=== PATIENT | male | born 1950 | race Caucasian/White ===

== ENCOUNTER 2017-07-10 11:02 | Inpatient (IN) ==
--- NOTE | 2017-07-09 21:13 | Discharge Summary ---
<Emmy Pratt Fifi - Last Filed: 07/10/17 10:45> Date of Encounter: 07/10/17 - Discharge Diagnosis (1) Status post total knee replacement, left Priority: Primary Status: Acute (2) Arthritis of knee, left Priority: Primary Status: Acute (3) HTN (hypertension) Priority: Secondary Status: Acute Qualifiers: Hypertension type: essential hypertension Qualified Code(s): I10 - Essential (primary) hypertension (4) Paroxysmal atrial fibrillation Priority: Secondary Status: Chronic (5) Nocturnal hypoxemia Priority: Secondary Status: Chronic (6) GUI (obstructive sleep apnea) Priority: Secondary Status: Chronic Comments: ON O2 Q HS (7) Chronic pain Priority: Secondary Status: Chronic Comments: Holding [place] 5/325 BID - last dose 06/16/17 Qualifiers: Chronic pain type: other chronic pain Qualified Code(s): G89.29 - Other chronic pain (8) Cerebral palsy Priority: Secondary Status: Chronic Qualifiers: Cerebral palsy type: unspecified type Qualified Code(s): G80.9 - Cerebral palsy, unspecified - Discharge Medications Home Medications: Aspirin Enteric Coated [Aspirin EC] 325 mg PO DAILY #21 tablet. 07/09/17 [Rx] OxyCODONE Immed Rel [Roxicodone 5 MG] 5 - 10 mg PO Q6HR PRN #40 tablet 07/09/17 [Rx] Acetaminophen [Tylenol] 500 mg PO TID PRN 07/10/17 [History] Ascorbate Calcium [Vitamin C] 500 mg PO DAILY 07/10/17 [History] Atorvastatin [Lipitor] 40 mg PO DAILY 07/10/17 [History] Carvedilol [Coreg] 25 mg PO BID 07/10/17 [History] DiphenhydraMINE [Benadryl] 50 mg PO HS PRN 07/10/17 [History] Lisinopril [Zestril] 5 mg PO DAILY 07/10/17 [History] Mv-Mn/FA/Vit K/Lycop/Lut/Coq10 [Daily Multivitamin Capsule] 1 tab PO DAILY 07/10 [History] Rivaroxaban [Xarelto] 20 mg PO DAILY 07/10/17 [History] Allergies/Adverse Reactions: 3 Allergy/AdvReac Type Severity Reaction Status Date / Time Amoxicillin Allergy Rash Verified 07/10/17 11:57 ibuprofen [From Motrin] Allergy See Verified 07/10/17 11:57 Comments NSAIDS (Non-Steroidal Allergy See Verified 07/10/17 11:57 Anti-Inflamma Comments Primary care physician: Mony Armstrong, - Patient Status Disposition: Home, Self-Care Condition: Good - Discharge Instructions Follow Up With: Mony Armstrong MD [Primary Care Provider] - - Hospital Course Hospital course: Mr. Castelan is a 67 year old male - Time Spent with Patient Total time spent providing and/or coordinating discharge services: <Alejandro Patten - Last Filed: 07/13/17 06:51> Date of Encounter: 07/13/17 Time of Encounter: 06:50 - Discharge Diagnosis (1) Obesity (BMI 35.0-39.9 without comorbidity) Priority: Secondary Status: Chronic (2) Status post total knee replacement, left Priority: Primary Status: Acute (3) Arthritis of knee, left Priority: Primary Status: Chronic (4) HTN (hypertension) Priority: Secondary Status: Chronic Qualifiers: Hypertension type: essential hypertension Qualified Code(s): I10 - Essential (primary) hypertension (5) Paroxysmal atrial fibrillation Priority: Secondary Status: Chronic (6) Nocturnal hypoxemia Priority: Secondary Status: Chronic (7) GUI (obstructive sleep apnea) Priority: Secondary Status: Chronic (8) Chronic pain Priority: Secondary Status: Chronic Qualifiers: Chronic pain type: other chronic pain Qualified Code(s): G89.29 - Other chronic pain (9) Cerebral palsy Priority: Secondary Status: Chronic Qualifiers: Cerebral palsy type: unspecified type Qualified Code(s): G80.9 - Cerebral palsy, unspecified (10) Renal insufficiency Priority: Secondary Status: Chronic (11) Acute blood loss anemia Priority: Primary Status: Acute Primary care physician: Mony Armstrong, - Patient Status Functional capacity at discharge: uses cane/walker Overall status at discharge: patient is progressing back to baseline - Hospital Course Hospital course: Mr. Castelan is a 67 year old male Status post left total knee replacement. Patient with a running aVR with his atrial fibrillation treated with IV Cardizem changed to by mouth Cardizem otherwise discharge stable condition. The patient had an uneventful postoperative course. They received antibiotics and physical therapy and were discharged in stable condition. There will follow -up in the office in 2 weeks. - Time Spent with Patient Total time spent providing and/or coordinating discharge services:
--- NOTE | 2017-07-10 11:20 | History & Physical Report ---
Date of Encounter: 07/10/17 Time of Encounter: 11:20 24 Hour HP Update - Instructions Instructions: If the History and Physical is less than 30 days old and was completed prior to A.M. admission and or procedure and has NOT been updated on calendar day of procedure please complete this update prior to performing procedure. - Update Patient reports changes in Medical Condition: No Changes in examination, assessment, or condition: No Changes in Medication: No Preop tests/diagnostics Reviewed: Yes Surgery Remains Indicated: Yes Consent for Planned Operative Procedure(s) Verified: Yes - Pre-Operative Checklist Preoperative Checklist Indicated: No Prophylactic Antibiotic Ordered: Yes Is VTE Prophylaxis Indicated?: Yes
[2017-07-10] MEDS ORDERED: Lidocaine -MPF 1% 2 ML VIAL ID ONE (11:24)
[2017-07-10] MEDS ORDERED: Clindamycin 900 MG/50 ML 900 MG/50 ML IV.SOLN IVPB ONE (11:24)
[2017-07-10] MEDS ORDERED: Ringers Solution, Lactated 1,000 ML IVC SCH ×2 (11:30→17:36)
[2017-07-10] MEDS ORDERED: CeFAZolin Pre 2,000 MG/100 ML 2,000 MG/100 ML BAG IVPB ONE (11:30)
--- NOTE | 2017-07-10 11:41 | Anesthesia Evaluation PreOp ---
Date of Encounter: 07/10/17 Time of Encounter: 11:38 - Past History Planned Operation: l tka Cardiac History: HTN, Hyperlipidemia, Arrhythmia (af) Pulmonary History: Snore, Tired most of day, Gasp/choke asleep [employer] History: Other (cerebral palsy, l sided weakness) Other Medical History: Denies Any Significant HX Anesthesia History: No Prior Anesthetic Complications, Past Anesthesia (ex lap gastrectomy, r bunion, tonsils, ventral hernia, achilles) Alcohol Use: none Drug use: none Medications and Allergies Aspirin Enteric Coated [Aspirin EC] 325 mg PO DAILY #21 tablet.dr 07/09/17 [Rx] OxyCODONE Immed Rel [Roxicodone 5 MG] 5 - 10 mg PO Q6HR PRN #40 tablet 07/09/17 [Rx] 3 Allergy/AdvReac Type Severity Reaction Status Date / Time Amoxicillin Allergy Rash Verified 06/27/17 14:02 ibuprofen [From Motrin] Allergy See Verified 06/27/17 14:01 Comments NSAIDS (Non-Steroidal Allergy See Verified 06/27/17 14:02 Anti-Inflamma Comments - Meds/Allergy Pre-op Review Medications Reviewed: Yes (xarelto off x 48hrs) Allergies Reviewed: Yes Beta Blockers on Current Med List: Yes If Beta Blockers taken, Date/Time (Last Dose taken): coreg at 09:45 Anesthesia Results - Imaging EKG: report reviewed (07/05 sr) Anesthesia Exam O2 Sat Height 1.63 m Height 1.63 m Height 1.63 m Weight 101.151 kg Weight 101.151 kg Weight 101.151 kg O2 Sat by Pulse Oximetry 96 O2 Sat by Pulse Oximetry 96 Vital Signs Temp Pulse Resp BP Pulse Ox 97.7 F 78 18 184/87 96 07/10/17 11:18 07/10/17 11:18 07/10/17 11:18 07/10/17 11:18 07/10/17 11:18 Height: 1.63 Weight: 101 NPO (# of Hours): >8 - HEENT Pupil (Motor): Pupils equal, EOMI Mallampati: II Teeth: Poor dentition Oral Opening: Greater than 3 - [employer] Motor: Normal RUE, Normal RLE, Normal Face, Deficit LUE, Deficit LLE [employer] Sensory: Normal: RUE, RLE, Face, Deficit: LUE, LLE - Cardiac Rhythm: Regular Murmur: None - Pulmonary Breath Sounds: bilateral Clear Respiratory Effort: Symmetrical Anesthesia Assess/Plan ASA Score: 3 (no sux) Modified Rubio Scale for Level of Consciousness: Cooperative, oriented, and tranquil Anesthetic Plan: General Monitoring Plan: Standard Monitors Recovery Plan: PACU
[2017-07-10] MEDS ORDERED: CloNIDine Patch 0.1 MG PATCH (WEEKLY) TD ONE (12:00)
[2017-07-10] MEDS ORDERED: Bupivacaine/Clonidine Syringe 1 EACH SYRINGE ONE (13:15)
[2017-07-10] MEDS ORDERED: ROPIVACAINE HCL/PF 0.5% 30 ML VIAL ONE (13:27)
[2017-07-10] MEDS ORDERED: Acetaminophen IV 0 MG/0 ML INFUS..BTL ONE (14:34)
[2017-07-10] MEDS ORDERED: *HR* Labetalol 20 MG/4 ML SYRINGE IVP PRN (14:39)
[2017-07-10] MEDS ORDERED: Dexamethasone 4 MG/ML VIAL IVP PRN (14:39)
[2017-07-10] MEDS ORDERED: Ondansetron 4 MG/2 ML VIAL IVP PRN ×2 (14:39→17:36)
[2017-07-10] MEDS ORDERED: *HR* FentaNYL (PF) 100 MCG/2 ML VIAL ONE ×2 (14:46)
[2017-07-10] MEDS ORDERED: Lidocaine -MPF 2% 2 ML VIAL ONE (14:46)
[2017-07-10] MEDS ORDERED: *HR* Propofol 200 MG/20 ML VIAL IVP ONE (14:46)
[2017-07-10] MEDS ORDERED: Ondansetron 4 MG/2 ML VIAL ONE (14:46)
[2017-07-10] MEDS ORDERED: *HR* Midazolam HCl 2 MG/2 ML VIAL ONE (14:46)
[2017-07-10] MEDS ORDERED: *HR* HYDROmorphone 2 MG/ML SYRINGE ONE (14:49)
--- NOTE | 2017-07-10 14:59 | Orthopedic Operative Note ---
Date of procedure: 07/10/17 Pre-op diagnosis: Left knee arthritis Post-op diagnosis: same (Left leg cerebral palsy) Procedure: Procedure: Left Total knee replacement Estimated blood loss: 400 cc Hardware: Metal and polyethylene replacement. Arthrex Femur: 4 Tibia: 3 PS insert:12 Patella:34 Exam Under anesthesia: Valgus alignment loss. Extension 5 degrees full flexion significant smaller left lower extremity Procedural Notes: Grade 4 arthritic changes medial compartment patellofemoral joint and lateral compartment Operative procedure: The patient was brought to the operating room and placed on the operating room table. After general anesthesia was administered the operative knee was examined. Findings were noted in the exam under anesthesia. The operative extremity was prepped and draped in sterile surgical fashion. The patient received IV antibiotics prior to skin incision. A standard midline incision was made centered over the patella. The incision was made through the skin and subcutaneous tissue. A medial parapatellar tendon approach was performed. Care was taken to preserve tissue along the medial aspect of the patella. And to protect the patella tendon. The deep MCL was released off the medial tibia. The infra patella fat pad was excised. Knee was brought into flexion. Patient noted to have grade 4 arthritic changes all 3 compartments. The entry hole was made for the intramedullary femoral guide. The guide was seated in 6 degrees of valgus. Anterior cut was made followed by the distal cut. The ACL the PCL the medial and the lateral menisci were excised. The tibia was subluxed forward. The entry hole was made for the intramedullary tibial guide. Guide was seated to resect 2 mm off the more abnormal side. The knee was brought into flexion the distal femur was sized to a 4. The femoral guide was seated, the anterior cut was made followed by the posterior condylar cut, followed by the chamfer cuts. The finishing guide was seated the box cut was made and the lug holes were drilled. The tibia was sized to 3, the tibial tray was seated and prepared with the large drill followed by the fin cutter. Trial reduction revealed full extension no varus valgus instability with the appropriate 12 PS Bharti. The patella was everted and cut was made at the level of the insertion of the quadriceps and patella tendon. The patella was sized to 30 the guide was seated and the lug holes are drilled. Trial reduction revealed excellent patella tracking. All trial components were removed all bony surfaces were irrigated. The tibia was cemented first followed by the femur. The 12 PS Bharti was seated and the knee was brought into full extension. The patella was cemented and held in place with the patellar holding clamp. After the cement had hardened, the knee sat for 2 minutes with a Betadine saline solution. The knee was then irrigated out with 2 L of pulse irrigation. The PA closed the knee. The extensor mechanism was closed with #2 FiberWire suture and #2 PDS suture. The subcutaneous tissue was then irrigated and closed deep with #1 PDS suture superficially with 0 PDS suture and skin was closed with skin miguel. The patient was then placed in a sterile dressing and a postoperative brace extubated and transferred to recovery room in stable condition. Anesthesia: JAGJIT Surgeon: Alejandro Patten [employer] Worker: Lexus Neff Condition: stable Disposition: PACU
[2017-07-10] MEDS ORDERED: *HR* Morphine 10 MG/ML VIAL ONE (15:30)
[2017-07-10] MEDS: *HR* HYDROmorphone (PF) 1 MG/ML SYRINGE IVP PRN ×5 (15:48→23:17)
--- NOTE | 2017-07-10 16:24 | Anesthesia Evaluation Post Op ---
Date of Encounter: 07/10/17 Time of Encounter: 16:24 - Vital Signs Vital Signs: Vital Signs/O2 Sat, Most Current Temp Pulse Resp BP Pulse Ox 98.1 F 70 14 149/94 94 07/10/17 16:05 07/10/17 16:15 07/10/17 16:15 07/10/17 16:15 07/10/17 16:15 - Lungs Lungs: Clear Ascult./Percussion - Airway Airway: Non-obstructed - Cardiovascular Regular Rate - Mental Status Mental Status: Alert & Oriented, Answers Appropriately - Pain Pain Scale: 5 Pain Scale used: Numeric (1 - 10) - Nausea Vomiting Nausea Vomiting: Not Present - Hydration Hydration: Ice chips, Has not voided - Discharge PostOp Status: Transfer Patient to floor
[2017-07-10 17:24] LABS: Hematocrit 37.9 % (37.5-50.1); Hemoglobin 12.1 g/dL (12.9-16.9)
[2017-07-10] MEDS ORDERED: ceFAZolin 2,000 MG in D5% in Water 100 ML IVPB SCH (17:36)
[2017-07-10] MEDS ORDERED: *HR* OxyCODONE Immed Rel 5 MG TABLET PO PRN (17:36)
[2017-07-10] MEDS ORDERED: Naloxone 0.4 MG/ML INJ IVP PRN (17:36)
[2017-07-10] MEDS ORDERED: *HR* Enoxaparin 30 MG/0.3 ML SYRINGE SQ SCH (18:00)
[2017-07-10] MEDS: *HR* OxyCODONE Immed Rel 5 MG TABLET PO PRN (18:58)
[2017-07-10] MEDS ORDERED: Sennosides 8.6 MG TABLET PO PRN (21:00)
[2017-07-10] MEDS ORDERED: Temazepam 15 MG CAPSULE PO PRN (21:00)
[2017-07-10] MEDS ORDERED: MOM Conc 10 ML UD.LIQ PO PRN (21:00)
[2017-07-10] MEDS: ceFAZolin 2,000 MG in D5% in Water 100 ML IVPB SCH (21:43)
[2017-07-11] MEDS: *HR* OxyCODONE Immed Rel 5 MG TABLET PO PRN ×4 (04:02→21:29)
[2017-07-11 05:40] LABS: Hematocrit 34.3 % (37.5-50.1); Hemoglobin 10.7 g/dL (12.9-16.9)
[2017-07-11] MEDS: ceFAZolin 2,000 MG in D5% in Water 100 ML IVPB SCH (05:43)
[2017-07-11] MEDS: *HR* HYDROmorphone (PF) 1 MG/ML SYRINGE IVP PRN ×5 (05:52→15:12)
[2017-07-11 05:53] LABS: Calcium 8.4 mg/dL (8.6-10.8); Potassium 4.6 mEq/L (3.5-4.5)
--- NOTE | 2017-07-11 06:48 | Orthopedics Progress Note ---
Date of Encounter: 07/11/17 Time of Encounter: 06:47 - Assessment and Plan (1) Obesity (BMI 35.0-39.9 without comorbidity) Current Visit: Yes Status: Chronic (2) Status post total knee replacement, left Current Visit: Yes Status: Acute (3) Arthritis of knee, left Current Visit: Yes Status: Chronic (4) HTN (hypertension) Current Visit: Yes Status: Chronic Qualifiers: Hypertension type: essential hypertension Qualified Code(s): I10 - Essential (primary) hypertension (5) Paroxysmal atrial fibrillation Current Visit: Yes Status: Chronic (6) Nocturnal hypoxemia Current Visit: Yes Status: Chronic (7) GUI (obstructive sleep apnea) Current Visit: Yes Status: Chronic (8) Chronic pain Current Visit: Yes Status: Chronic Qualifiers: Chronic pain type: other chronic pain Qualified Code(s): G89.29 - Other chronic pain (9) Cerebral palsy Current Visit: Yes Status: Chronic Qualifiers: Cerebral palsy type: unspecified type Qualified Code(s): G80.9 - Cerebral palsy, unspecified Subjective Interval history: Patient was seen this morning doing well without complaints. Afebrile vital signs stable. Operative extremity: Neurovascularly intact Dressing clean dry and intact Calves nontender Assessment and plan: Continue with postoperative care Hematocrit 34 Objective Vital signs: Vital Signs Temp Pulse Resp BP Pulse Ox 07/11/17 04:41 99.1 F 92 19 151/82 95 07/11/17 00:14 97.8 F 106 19 154/91 96 07/10/17 19:27 98.4 F 76 16 148/84 96 07/10/17 17:35 97.7 F 69 12 160/90 91 07/10/17 16:57 97.7 F 77 14 146/88 97 07/10/17 16:25 98.1 F 73 14 136/97 97 07/10/17 16:15 70 14 149/94 94 07/10/17 16:05 98.1 F 73 14 142/97 93 07/10/17 15:55 82 12 167/99 95 07/10/17 15:45 84 14 139/96 94 07/10/17 15:35 97.5 F L 85 16 127/77 95 07/10/17 11:31 97.7 F 78 18 184/87 96 07/10/17 11:18 97.7 F 78 18 184/87 96 Intake and Output 07/10/17 07/10/17 07/11/17 15:59 23:59 07:59 Intake Total 100 / 100 200 / 200 800 / 800 Output Total 500 / 500 Balance -400 / -400 200 / 200 800 / 800 Intake: IV Fluids 100 / 100 100 / 100 Ancef Premix 2,000 MG/100 100 / 100 ML 2,000 mg In 100 ml @ 200 mls/hr IVPB PREOP ONE Rx#:[id number] Ancef 2,000 MG In 100 / 100 Dextrose 5% 100 ML @ 200 mls/hr IVPB Q8H [facility] Rx#: [id number] Oral 100 / 100 800 / 800 Output: Estimated Blood Loss 500 / 500 Other: Weight 101.151 kg - Labs CBC & BMP: 07/11/17 05:14 07/11/17 05:14 Labs: Abnormal lab results Hgb 10.7 g/dL (12.9-16.9) L 07/11/17 05:14 Hct 34.3 % (37.5-50.1) L 07/11/17 05:14 Sodium 131 mEq/L (136-145) L 07/11/17 05:14 Potassium 4.6 mEq/L (3.5-4.5) H 07/11/17 05:14 Creatinine 1.76 mg/dL (0.72-1.25) H 07/11/17 05:14 Est GFR ( Amer) 47 (> 60) L 07/11/17 05:14 Est GFR (Non-Af Amer) 39 (> 60) L 07/11/17 05:14 Glucose 135 mg/dL (70-99) H 07/11/17 05:14 Calculated Osmolality 278 (280-300) L 07/11/17 05:14 Calcium 8.4 mg/dL (8.6-10.8) L 07/11/17 05:14 - VTE Documentation of Mechanical Device: Venous foot pump, device Consult Discharge Plan - Plan Referrals: Mony Armstrong MD [Primary Care Provider] -
[2017-07-11] MEDS: Ascorbic Acid 500 MG TABLET PO SCH (08:04)
[2017-07-11] MEDS: Multivit/Ca/Min/Fe/FA 1 TAB TABLET PO SCH (08:04)
[2017-07-11] MEDS ORDERED: *HR* Rivaroxaban 10 MG TABLET PO SCH (09:00)
--- NOTE | 2017-07-11 12:12 | Event Note ---
Date of Encounter: 07/11/17 Time of Encounter: 12:11 PCR - Left TKR - POD#1. Patient seen at bedside. Limited urine output today - bladder scan needs repeated* patient declined straight catherization. No change with renal function per labs at this time. Will monitor. Pain control: Chronic pain medication - [place] 5/325 BID - on hold Participating in PT. Recommending ECF for now. All questions and concerns addressed. Educated on use of incentive spirometer, ambulation, and hydration. Patient educated on post-operative restrictions and care. Addressed: P. A.Fib - resumed Xarelto 07/11/17 Cerebral Palsy GUI with O2 at night needed - chronic D/C plan: Outpatient PT, or likely HH - patient declining ECF placement.
[2017-07-11] MEDS ORDERED: 0.9 % Sodium Chloride 500 ML IVC ONE (16:36)
[2017-07-12] MEDS ORDERED: 0.9 % Sodium Chloride 250 ML ONE (01:00)
--- NOTE | 2017-07-12 01:17 | Internal Medicine Consult Note ---
Date of Encounter: 07/12/17 Time of Encounter: 01:15 - Assessment and Plan (1) Paroxysmal atrial fibrillation Current Visit: Yes Status: Chronic Assessment and plan: Has P.AFib but likely went to RVR during stress dorothy-operatively. Given BP stable, start dilt gtt in attempt to rate control, check Mg and K to ensure >2 and >4-5 respectively. Aim to stabilize HR. May need to increase coreg dose in the morning depending on how he fair overnight (2) Renal insufficiency Current Visit: Yes Status: Acute Assessment and plan: unknown baseline. Will trend Cr (3) Cerebral palsy Current Visit: Yes Status: Chronic Assessment and plan: stable Qualifiers: Cerebral palsy type: unspecified type Qualified Code(s): G80.9 - Cerebral palsy, unspecified (4) Obesity (BMI 35.0-39.9 without comorbidity) Current Visit: Yes Status: Chronic Assessment and plan: education (5) HTN (hypertension) Current Visit: Yes Status: Chronic Assessment and plan: monitor on cardiac meds above Qualifiers: Hypertension type: essential hypertension Qualified Code(s): I10 - Essential (primary) hypertension (6) Status post total knee replacement, left Current Visit: Yes Status: Acute Assessment and plan: management per ortho Internal Medicine - CN: HPI - Data of Consult Patient: new to practice Consult date: 07/12/17 Requesting Physician: Alejandro Patten MD - Consult Narrative Reason for consult: AFib rvr History of present illness: Mr. Castelan is a 67 year old male with hx of HTN, P.AFib on coreg, xarelto under the care of Dr Anival Martínez of cardiology. He is s/p left knee replacement this past monday and is pending disposition today. However, overnight , he went into AFib rvr with mild symptoms but stable appearing. EKG reviewed by self with rate 157, RVR. Past Med Surg Social Fam HX - Past Medical History Medical history: hyperlipidemia, hypertension Psychiatric history: no psych history - Social History Smoking Status: Former smoker Smokeless Tobacco Status: No Alcohol use: none Drug use: none Review of systems: ROS 14 point review of systems reviewed as best as possible given presentation. Pertinent positive or negative as per HPI or otherwise reviewed as negative Internal Medicine - CN: Meds Aspirin Enteric Coated [Aspirin EC] 325 mg PO DAILY #21 tablet. 07/09/17 [Rx] OxyCODONE Immed Rel [Roxicodone 5 MG] 5 - 10 mg PO Q6HR PRN #40 tablet 07/09/17 [Rx] Acetaminophen [Tylenol] 500 mg PO TID PRN 07/10/17 [History] Ascorbate Calcium [Vitamin C] 500 mg PO DAILY 07/10/17 [History] Atorvastatin [Lipitor] 40 mg PO DAILY 07/10/17 [History] Carvedilol [Coreg] 25 mg PO BID 07/10/17 [History] DiphenhydraMINE [Benadryl] 50 mg PO HS PRN 07/10/17 [History] Lisinopril [Zestril] 5 mg PO DAILY 07/10/17 [History] Mv-Mn/FA/Vit K/Lycop/Lut/Coq10 [Daily Multivitamin Capsule] 1 tab PO DAILY 07/10 [History] Rivaroxaban [Xarelto] 20 mg PO DAILY 07/10/17 [History] 3 Allergy/AdvReac Type Severity Reaction Status Date / Time Amoxicillin Allergy Rash Verified 07/10/17 11:57 ibuprofen [From Motrin] Allergy See Verified 07/10/17 11:57 Comments NSAIDS (Non-Steroidal Allergy See Verified 07/10/17 11:57 Anti-Inflamma Comments Internal Medicine - CN: Exam - Constitutional Vitals: Temp Pulse Resp BP Pulse Ox 98.9 F 148 18 153/76 93 07/12/17 00:25 07/12/17 00:25 07/12/17 00:25 07/12/17 00:25 07/12/17 00:25 Exam: General - AAO x 3 Psych - Appropriate affect/speech. No agitation Eyes - OREN. Eye lids intact. No scleral icterus Heart - irregularly irregular tachycardia. S1 and S2 present. No added HS/ murmurs appreciated. No elevated JVD appreciated. Lung - Adequate air entry b/l, No crackes/wheezes appreciated GI - Soft, non-tender. No hepatosplenomegaly/ascites. BS+ - No CVA/suprapubic tenderness or palpable bladder distension Internal Medicine - CN: Reslt - Labs CBC & Chem 7: 07/11/17 05:14 07/11/17 05:14 Labs: Short CBC 07/11/17 Range/Units 05:14 Hgb 10.7 L (12.9-16.9) g/dL Hct 34.3 L (37.5-50.1) % BMP 07/11/17 05:14 Sodium 131 L Potassium 4.6 H Chloride 99 Carbon Dioxide 24 BUN 25 Creatinine 1.76 H Glucose 135 H Calcium 8.4 L - Impressions Impressions Knee X-Ray 07/10/17 00:01 IMPRESSION: No evident complication status post left total knee arthroplasty. D/ / 07/10/2017 16:52:59 Robinson Vail MD / hayden Interpreting Provider: Robinson Vail MD Consult Discharge Plan - Plan Referrals: Mony Armstrong MD [Primary Care Provider] -
--- NOTE | 2017-07-12 06:38 | Orthopedics Progress Note ---
Date of Encounter: 07/12/17 Time of Encounter: 06:37 - Assessment and Plan (1) Obesity (BMI 35.0-39.9 without comorbidity) Current Visit: Yes Status: Chronic (2) Status post total knee replacement, left Current Visit: Yes Status: Acute (3) Arthritis of knee, left Current Visit: Yes Status: Chronic (4) HTN (hypertension) Current Visit: Yes Status: Chronic Qualifiers: Hypertension type: essential hypertension Qualified Code(s): I10 - Essential (primary) hypertension (5) Paroxysmal atrial fibrillation Current Visit: Yes Status: Chronic (6) Nocturnal hypoxemia Current Visit: Yes Status: Chronic (7) GUI (obstructive sleep apnea) Current Visit: Yes Status: Chronic (8) Chronic pain Current Visit: Yes Status: Chronic Qualifiers: Chronic pain type: other chronic pain Qualified Code(s): G89.29 - Other chronic pain (9) Cerebral palsy Current Visit: Yes Status: Chronic Qualifiers: Cerebral palsy type: unspecified type Qualified Code(s): G80.9 - Cerebral palsy, unspecified Subjective Interval history: Patient was seen this morning doing well without complaints. Patient with atrial fibrillation RVR overnight seen and evaluated by hospitalist consult appreciated Afebrile vital signs stable. Operative extremity: Neurovascularly intact Dressing clean dry and intact Calves nontender Assessment and plan: Continue with postoperative care Hematocrit 34 orthopedically stable, plan as per hospitalist. Objective Vital signs: Vital Signs Temp Pulse Resp BP Pulse Ox 07/12/17 05:41 90 121/78 07/12/17 05:23 77 124/65 07/12/17 05:00 89 116/71 07/12/17 04:34 86 123/64 07/12/17 04:11 88 117/65 07/12/17 03:50 92 116/62 07/12/17 03:49 98.4 F 103 19 123/69 93 07/12/17 03:29 96 118/86 07/12/17 03:11 110 114/75 07/12/17 02:59 88 121/88 07/12/17 02:35 107 108/75 07/12/17 02:14 113 106/75 07/12/17 01:57 109 120/78 07/12/17 01:43 125 107/68 07/12/17 01:30 121 110/75 07/12/17 00:25 98.9 F 148 18 153/76 93 07/11/17 20:52 99.9 F H 90 21 151/75 91 07/11/17 16:06 98.6 F 81 16 123/80 91 07/11/17 11:43 98.6 F 69 16 131/72 94 07/11/17 07:19 98.9 F 84 18 149/82 94 Intake and Output 07/11/17 07/11/17 07/12/17 15:59 23:59 07:59 Intake Total 480 / 480 500 / 500 Output Total 225 / 225 1200 / 1200 425 / 425 Balance 255 / 255 -700 / -700 -398 / -398 Intake: IV Fluids 500 / 500 0.9 % Sodium Chloride 500 500 / 500 ML @ 1875 mls/hr IVC . Q16M ONE Rx#:[id number] Cardizem 125 MG In Dextrose 5% 100 ML @ 3 MG /HR 3 mls/hr IVC .Q24H [facility] Rx#:[id number] Oral 480 / 480 Output: Urine 225 / 225 1200 / 1200 425 / 425 Other: Meal Lunch Dinner Percent of Meal Consumed 100% 90% Weight 105.4 kg Patient Weight 07/12/17 23:59 Weight 105.4 kg - Labs CBC & BMP: 07/11/17 05:14 07/11/17 05:14 Labs: Abnormal lab results Hgb 10.7 g/dL (12.9-16.9) L 07/11/17 05:14 Hct 34.3 % (37.5-50.1) L 07/11/17 05:14 Sodium 131 mEq/L (136-145) L 07/11/17 05:14 Potassium 4.6 mEq/L (3.5-4.5) H 07/11/17 05:14 Creatinine 1.76 mg/dL (0.72-1.25) H 07/11/17 05:14 Est GFR ( Amer) 47 (> 60) L 07/11/17 05:14 Est GFR (Non-Af Amer) 39 (> 60) L 07/11/17 05:14 Glucose 135 mg/dL (70-99) H 07/11/17 05:14 Calculated Osmolality 278 (280-300) L 07/11/17 05:14 Calcium 8.4 mg/dL (8.6-10.8) L 07/11/17 05:14 - VTE Documentation of Mechanical Device: Venous foot pump, device Consult Discharge Plan - Plan Referrals: Mony Armstrong MD [Primary Care Provider] -
[2017-07-12 06:40] LABS: Hematocrit 28.9 % (37.5-50.1); Hemoglobin 9.3 g/dL (12.9-16.9)
[2017-07-12 06:51] LABS: Magnesium 1.8 mg/dL (1.6-2.6); Potassium 4.6 mEq/L (3.5-4.5)
[2017-07-12] MEDS: Ascorbic Acid 500 MG TABLET PO SCH (09:37)
[2017-07-12] MEDS: Diltiazem CD (24hr) 120 MG CAPSULE PO SCH (09:37)
[2017-07-12] MEDS: Multivit/Ca/Min/Fe/FA 1 TAB TABLET PO SCH (09:37)
[2017-07-12] MEDS: *HR* Rivaroxaban 15 MG TABLET PO SCH (09:37)
[2017-07-12] MEDS: *HR* HYDROmorphone (PF) 1 MG/ML SYRINGE IVP PRN (09:37)
--- NOTE | 2017-07-12 11:09 | Event Note ---
Date of Encounter: 07/12/17 Time of Encounter: 11:50 PCR - Left TKR - POD#2. Patient seen at bedside. Limited urine output - Renal function returned to baseline with bolus yesterday - encouraged ample PO fluids. Hospitalist on board for AFib that developed early this morning. Had Cardizem drip and talked about switching to oral. Patient notified me that he has had issues with lower extremity edema and cellulitis in the past while on Cardizem and does not wish to take this. He states he has taken Coreg in the past for his AFib. Will notify hospitalist. H/H [phone] Pain control: Chronic pain medication - [place] 5/325 BID - on hold Participating in PT - on medical hold at present. Recommending ECF. All questions and concerns addressed. Educated on use of incentive spirometer, ambulation, and hydration. Patient educated on post-operative restrictions and care. Addressed: PGiovanna ChanFib - resumed Xarelto 07/11/17 - Hospitalist on board at present Cerebral Palsy affecting left side GUI with O2 at night needed - chronic D/C plan: Likely HH or ECF- patient does not wish to have ECF placement however discussed the set backs he is having with his heart and that we will continue to reevaluate as PT is able to reevaluate once he is no longer on bedrest.
--- NOTE | 2017-07-12 13:43 | Event Note ---
Date of Encounter: 07/12/17 Time of Encounter: 08:55 Patient doing well this morning. Denies any chest pain or palpitations. Heart rate has been well controlled and patient is on 3 mg of IV Cardizem drip at this time. Will titrate off IV Cardizem and place patient on oral Cardizem. Recommend discharging the patient on 120 mg of Cardizem CD and outpatient follow -up with cardiology to adjust this further. Patient is adequately anticoagulated with Xarelto.
--- NOTE | 2017-07-12 14:56 | Electrocardiograph Report ---
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
[2017-07-12] MEDS: *HR* OxyCODONE Immed Rel 5 MG TABLET PO PRN ×2 (15:17→19:58)
[2017-07-13 06:34] LABS: BUN/Creatinine Ratio 21 (6-26); Blood Urea Nitrogen 26 mg/dL (8-26); Calcium 8.8 mg/dL (8.6-10.8); Carbon Dioxide 25 mEq/L (19-29); Chloride 96 mEq/L (98-109); Glucose 120 mg/dL (70-99); Magnesium 1.9 mg/dL (1.6-2.6); Osmolality,Calculated 280 (280-300); Potassium 4.3 mEq/L (3.5-4.5); Sodium 132 mEq/L (136-145); eGFR For African Americans > 60 (> 60); eGFR For Non-African Americans 57 (> 60)
[2017-07-13] MEDS: *HR* OxyCODONE Immed Rel 5 MG TABLET PO PRN ×3 (06:45→15:59)
--- NOTE | 2017-07-13 06:52 | Orthopedics Progress Note ---
Date of Encounter: 07/13/17 Time of Encounter: 06:52 - Assessment and Plan (1) Obesity (BMI 35.0-39.9 without comorbidity) Current Visit: Yes Status: Chronic (2) Status post total knee replacement, left Current Visit: Yes Status: Acute (3) Arthritis of knee, left Current Visit: Yes Status: Chronic (4) HTN (hypertension) Current Visit: Yes Status: Chronic Qualifiers: Hypertension type: essential hypertension Qualified Code(s): I10 - Essential (primary) hypertension (5) Paroxysmal atrial fibrillation Current Visit: Yes Status: Chronic (6) Nocturnal hypoxemia Current Visit: Yes Status: Chronic (7) GUI (obstructive sleep apnea) Current Visit: Yes Status: Chronic (8) Chronic pain Current Visit: Yes Status: Chronic Qualifiers: Chronic pain type: other chronic pain Qualified Code(s): G89.29 - Other chronic pain (9) Cerebral palsy Current Visit: Yes Status: Chronic Qualifiers: Cerebral palsy type: unspecified type Qualified Code(s): G80.9 - Cerebral palsy, unspecified (10) Renal insufficiency Current Visit: Yes Status: Chronic (11) Acute blood loss anemia Current Visit: Yes Status: Acute Subjective Interval history: Patient was seen this morning doing well without complaints. Afebrile vital signs stable. Operative extremity: Neurovascularly intact Dressing clean dry and intact Calves nontender Assessment and plan: Continue with postoperative care Hemoglobin 9.3 patient switched to by mouth Cardizem discharged today Objective Vital signs: Vital Signs Temp Pulse Resp BP Pulse Ox 07/13/17 05:16 99.1 F 78 20 130/66 91 07/13/17 00:45 98.8 F 78 18 120/74 94 07/12/17 21:55 98.8 F 85 19 131/70 95 07/12/17 15:29 98.6 F 76 18 115/58 95 07/12/17 10:31 98.6 F 89 20 130/62 92 07/12/17 09:45 92 Intake and Output 07/12/17 07/12/17 07/13/17 15:59 23:59 07:59 Intake Total 580 / 580 150 / 150 Output Total 900 / 900 275 / 275 100 / 100 Balance -320 / -320 -125 / -125 -100 / -100 Intake: Oral 580 / 580 150 / 150 Output: Urine 900 / 900 275 / 275 100 / 100 Other: Meal Lunch Percent of Meal Consumed 10% - Labs CBC & BMP: 07/12/17 06:16 07/13/17 05:10 Labs: Abnormal lab results Hgb 9.3 g/dL (12.9-16.9) L 07/12/17 06:16 Hct 28.9 % (37.5-50.1) L 07/12/17 06:16 Sodium 132 mEq/L (136-145) L 07/13/17 05:10 Chloride 96 mEq/L (98-109) L 07/13/17 05:10 Creatinine 1.26 mg/dL (0.72-1.25) H 07/13/17 05:10 Est GFR (Non-Af Amer) 57 (> 60) L 07/13/17 05:10 Glucose 120 mg/dL (70-99) H 07/13/17 05:10 - VTE Documentation of Mechanical Device: Venous foot pump, device Consult Discharge Plan - Plan Referrals: Mony Armstrong MD [Primary Care Provider] -
--- NOTE | 2017-07-13 08:49 | Internal Med Progress Note ---
Date of Encounter: 07/13/17 Time of Encounter: 08:20 - Assessment and plan (1) Paroxysmal atrial fibrillation Current Visit: Yes Status: Chronic Assessment and plan: Patient has been in sinus rhythm for greater than 24 hours. Started on oral Cardizem. Patient reports history of significant pedal edema while on Cardizem previously resulting in recurrent bouts of cellulitis. Patient does follow up with cardiology as outpatient and is on Coreg for hypertension and rate control. On Xarelto for anticoagulation. As patient had not tolerated Cardizem well before, may hold this medication at discharge and have patient follow up with cardiology instead to manage his atrial fibrillation. He could be changed over from carvedilol to metoprolol for better rate control. From medical standpoint he is currently stable for discharge at this time. (2) HTN (hypertension) Current Visit: Yes Status: Chronic Assessment and plan: Well-controlled Qualifiers: Hypertension type: essential hypertension Qualified Code(s): I10 - Essential (primary) hypertension (3) Obesity (BMI 35.0-39.9 without comorbidity) Current Visit: Yes Status: Chronic (4) Renal insufficiency Current Visit: Yes Status: Chronic Assessment and plan: Renal function is improving. Creatinine is 1.26 today. - Subjective Interval history: Patient is doing well today. No palpitations or chest pain. No new complaints at this time - Constitutional Vitals: Temp Pulse Resp BP Pulse Ox 98.5 F 81 18 117/71 91 07/13/17 07:29 07/13/17 07:29 07/13/17 07:29 07/13/17 07:29 07/13/17 07:29 General appearance: Present: A&O X 3, no acute distress, answers questions appropriately - Respiratory Respiratory exam: Present: CTAB. Absent: accessory muscle use, rales, rhonchi, wheezes - Cardiovascular Cardiovascular exam: Present: RRR, +S1, +S2. Absent: diastolic murmur, gallop, rubs, systolic murmur - Extremities Exam Extremities exam: Present: tenderness (left knee), warm, radial pulses palpable and symmetrical. Absent: calf tenderness, cyanotic, pedal edema - Neurological Exam Neurological exam: Present: alert, oriented X3, no focal deficits. Absent: facial droop, speech deficit Internal Medicine: Result - Labs CBC & Chem 7: 07/12/17 06:16 07/13/17 05:10 Labs: [facility] 07/13/17 05:10 Sodium 132 L Potassium 4.3 Chloride 96 L Carbon Dioxide 25 BUN 26 Creatinine 1.26 H Glucose 120 H Calcium 8.8 - VTE Documentation of Mechanical Device: Venous foot pump, device Consult Discharge Plan - Plan Additional Instructions: Please follow up with cardiology within 1 week for further management of atrial fibrillation. Consider changing carvedilol to metoprolol for better rate control. Referrals: Mony Armstrong MD [Primary Care Provider] -
[2017-07-13] MEDS: Multivit/Ca/Min/Fe/FA 1 TAB TABLET PO SCH (09:38)
[2017-07-13] MEDS: Ascorbic Acid 500 MG TABLET PO SCH (09:38)
[2017-07-13] MEDS: *HR* Rivaroxaban 15 MG TABLET PO SCH (09:38)
[2017-07-13] MEDS: Diltiazem CD (24hr) 120 MG CAPSULE PO SCH (09:39)
[2017-07-13 11:58] VITALS: BP 119/64
--- NOTE | 2017-07-13 12:14 | Event Note ---
Date of Encounter: 07/13/17 Time of Encounter: 12:13 PCR - Left TKR - POD#3. Patient seen at bedside. Renal function returned to baseline - encouraged ample PO fluids. Hospitalist on board for AFib that developed early 07/12 Had Kaelyn carlson and talked about switching to oral. . He states he has taken Coreg in the past for his AFib. Will notify hospitalist. Diarrhea - checking for C.Diff. Pain control: Chronic pain medication - [place] 5/325 BID - on hold Participating in PT - on medical hold at present. Recommending ECF. All questions and concerns addressed. Educated on use of incentive spirometer, ambulation, and hydration. Patient educated on post-operative restrictions and care. Addressed: PGiovanna ChanFib - resumed Xarelto 07/11/17 - Hospitalist on board at present Cerebral Palsy affecting left side GUI with O2 at night needed - chronic D/C plan: ECF today - [facility] *C.Diff screen + - starting Flagyl 500mg BID for Discharge, first dose given prior to discharge NEEDS CARDIAC F/UP
--- NOTE | 2017-07-13 12:16 | Physician Discharge Referral ---
Home Health/Hosp Referral Info Transfer to: Home Health Provider in Charge Post Discharge: PCP - Diagnosis (1) Status post total knee replacement, left Priority: Primary Status: Acute (2) Arthritis of knee, left Priority: Primary Status: Chronic (3) HTN (hypertension) Priority: Secondary Status: Chronic (4) Paroxysmal atrial fibrillation Priority: Primary Status: Chronic (5) Nocturnal hypoxemia Priority: Secondary Status: Chronic (6) GUI (obstructive sleep apnea) Priority: Secondary Status: Chronic (7) Chronic pain Priority: Secondary Status: Chronic (8) Cerebral palsy Priority: Secondary Status: Chronic - Respiratory Orders Oxygen / L per min (Q HS) Smoking Cessation: Smoking cessation has been advised. For more information, call the [facility] Tobacco Quit Line at 4-011-DKMR-NOW. - Dressing/Wound Care Type of Dressing/Treatments w/Frequency: Opsite dressing, leave intact until first post-operative visit. If dressing becomes >50% saturated, contact office, remove dressing and place appropriate dressing in its place. Do not allow for dressing to get wet. [place] in place, plan to remove at post-operative day #14-16. Total Joint Precautions x 6 weeks Apply cold therapy wrap 3-6x/day for 20 minutes at a time. Encourage ambulation throughout the day Use Incentive spirometer 10x/hour. Elevate affected extremity above heart as tolerated. Brace: Wear knee immobilizer at night x 2 weeks. - Diet/Nutrition Diet/Nutrition Orders: Regular - Activity Activity Orders: Up ad norman, Ambulate, Walker - Services Needed Following services are medically necessary services: Nursing, Home Health Aide, Physical Therapy, Occupational Therapy - Transfer Medications Home Medications: Aspirin Enteric Coated [Aspirin EC] 325 mg PO DAILY #21 tablet. 07/09/17 [Rx] OxyCODONE Immed Rel [Roxicodone 5 MG] 5 - 10 mg PO Q6HR PRN #40 tablet 07/09/17 [Rx] Acetaminophen [Tylenol] 500 mg PO TID PRN 07/10/17 [History] Ascorbate Calcium [Vitamin C] 500 mg PO DAILY 07/10/17 [History] Atorvastatin [Lipitor] 40 mg PO DAILY 07/10/17 [History] Carvedilol [Coreg] 25 mg PO BID 07/10/17 [History] DiphenhydraMINE [Benadryl] 50 mg PO HS PRN 07/10/17 [History] Lisinopril [Zestril] 5 mg PO DAILY 07/10/17 [History] Mv-Mn/FA/Vit K/Lycop/Lut/Coq10 [Daily Multivitamin Capsule] 1 tab PO DAILY 07/10 [History] Rivaroxaban [Xarelto] 20 mg PO DAILY 07/10/17 [History] Allergies/Adverse Reactions: 3 Allergy/AdvReac Type Severity Reaction Status Date / Time Amoxicillin Allergy Rash Verified 07/10/17 11:57 ibuprofen [From Motrin] Allergy See Verified 07/10/17 11:57 Comments NSAIDS (Non-Steroidal Allergy See Verified 07/10/17 11:57 Anti-Inflamma Comments Certification: Further, I certify that my clinical findings support that this patient is homebound (i.e. absences from home require considerable and taxing effort and are for medical reasons or episcopalian services or infrequently or short duration when for other reasons) because: Homebound Reason: Post-surgery restriction and or conditions limit ability to leave home Attestation: My signature below is to certify that this patient is under my care and that I, or nurse practitioner, or a physician's assistant hvac mechanic working with me, has a face-to -face encounter with this patient.
--- NOTE | 2017-07-13 12:18 | Physician Discharge Referral ---
ExtendedCare Referral Info Transfer To: ecf Provider in Charge after Transfer: PCP Institutional Level of Care: Skilled - Diagnosis (1) Status post total knee replacement, left Priority: Primary Status: Acute (2) Arthritis of knee, left Priority: Primary Status: Chronic (3) HTN (hypertension) Priority: Secondary Status: Chronic (4) Paroxysmal atrial fibrillation Priority: Primary Status: Chronic (5) Nocturnal hypoxemia Priority: Secondary Status: Chronic (6) GUI (obstructive sleep apnea) Priority: Secondary Status: Chronic (7) Chronic pain Priority: Secondary Status: Chronic (8) Cerebral palsy Priority: Secondary Status: Chronic Expected Duration of Placement: < 30 days Prognosis: Good Aware of Diagnosis: Patient Aware of Prognosis: Patient - Transfer Medications Home Medications: OxyCODONE Immed Rel [Roxicodone 5 MG] 5 - 10 mg PO Q6HR PRN #40 tablet 07/09/17 [Rx] Acetaminophen [Tylenol] 500 mg PO TID PRN 07/10/17 [History] Ascorbate Calcium [Vitamin C] 500 mg PO DAILY 07/10/17 [History] Atorvastatin [Lipitor] 40 mg PO DAILY 07/10/17 [History] Carvedilol [Coreg] 25 mg PO BID 07/10/17 [History] DiphenhydraMINE [Benadryl] 50 mg PO HS PRN 07/10/17 [History] Lisinopril [Zestril] 5 mg PO DAILY 07/10/17 [History] Mv-Mn/FA/Vit K/Lycop/Lut/Coq10 [Daily Multivitamin Capsule] 1 tab PO DAILY 07/10 [History] Rivaroxaban [Xarelto] 20 mg PO DAILY 07/10/17 [History] Allergies/Adverse Reactions: 3 Allergy/AdvReac Type Severity Reaction Status Date / Time Amoxicillin Allergy Rash Verified 07/10/17 11:57 ibuprofen [From Motrin] Allergy See Verified 07/10/17 11:57 Comments NSAIDS (Non-Steroidal Allergy See Verified 07/10/17 11:57 Anti-Inflamma Comments - Respiratory Orders Oxygen / L per min (2L Q hs NC) Smoking Cessation: Smoking cessation has been advised. For more information, call the [place] Tobacco Quit Line at 9-475-HNRX-NOW. - Lab Orders Lab Orders: CBC - Ancillary Orders May use pressure relief devices daily prn, May go on ROXANA w/family/respon libertarian w /meds at nurse discretion PRN, May consult with Dentist, Cellar Packer, Farm Management Agent PRN - Mobility Orders Chair, Ambulate - Rehabiliation Orders Rehab Potential: Good Rehab Orders: ROM Exercises, Evaluation for Physical Therapy, Evaluation for Occupational Therapy Other: Opsite dressing, leave intact until first post-operative visit. If dressing becomes >50% saturated, contact office, remove dressing and place appropriate dressing in its place. Do not allow for dressing to get wet. [place] in place, plan to remove at post-operative day #14-16. Total Joint Precautions x 6 weeks Apply cold therapy wrap 3-6x/day for 20 minutes at a time. Encourage ambulation throughout the day Use Incentive spirometer 10x/hour. Elevate affected extremity above heart as tolerated. Brace: Wear knee immobilizer at night x 2 weeks. 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 The above information is true and accurate reflection of patient's current condition. Confidential - Redisclosure prohibited without a patient's written consent.
[2017-07-13] MEDS ORDERED: Acetaminophen 325 MG TABLET PO PRN (12:28)
[2017-07-13 13:23] LABS: Hematocrit 25.4 % (37.5-50.1); Hemoglobin 8.2 g/dL (12.9-16.9)
[2017-07-13] MEDS ORDERED: metroNIDAZOLE 500 MG TABLET PO SCH ×2 (16:53→21:00)
== END 2017-07-13 18:13 | disposition home or self-care (01) | DRG 470 ==
LOC: SAMDAY 11:02 → 3NENU 16:52
PROVIDERS: ADMIT Orthopaedic Surgery; ATTEND Orthopaedic Surgery